=== PATIENT | female | born 1945 | race Caucasian/White ===

== ENCOUNTER 2017-01-17 17:53 | Inpatient (IN) | payer MEDICARE, MEDICAID ==
[~2017-01-17] VITALS: Ht 165.1 cm; Wt 91.2 kg
[2017-01-17 19:17] LABS: BASOPHILS % 0.8 % (0.0-2.0); EOSINOPHILS % 2.3 % (0.0-5.0); LYMPHOCYTES % 17.7 % (20.0-50.0); MEAN CORPUSCULAR HEMOGLOBIN 23.6 pg (28.0-32.0); MEAN CORPUSCULAR VOLUME 78.9 fL (81.0-99.0); MEAN PLATELET VOLUME 7.7 fl (7.4-10.4); MONOCYTES % 11.5 % (2.0-8.0); NEUTROPHILS % 67.7 % (40.0-76.0); PLATELET 220 x1000/uL (130-400); RED BLOOD CELL COUNT 2.54 mill/uL (4.2-5.4); RED CELL DISTRIBUTION WIDTH 20.8 % (11.6-14.6)
[2017-01-17 19:20] LABS: HEMATOCRIT. 20.1 % (36.0-48.0)
[2017-01-17 19:23] LABS: PROTHROMBIN TIME 10.1 sec
[2017-01-17 19:32] LABS: CARBON DIOXIDE 35 mEq/L (21-32); CHLORIDE 102 mEq/L (98-107); TROPONIN I 0.03 ng/mL (0.00-0.04)
[2017-01-17] MEDS ORDERED: DOCUSATE SODIUM 100MG CAPSULE PO PRN (20:45)
[2017-01-17] MEDS ORDERED: LORAZEPAM 2MG/ML CPJ IV PRN (20:45)
[2017-01-17] MEDS ORDERED: NA PHOS,M-B/NA PHOS,DI-BA ENEMA 118ML PR PRN (20:45)
[2017-01-17] MEDS ORDERED: ZOLPIDEM TARTRATE 5MG TABLET PO PRN (20:45)
[2017-01-17] MEDS ORDERED: ONDANSETRON HCL 4MG/2ML VIAL IV PRN (20:45)
[2017-01-17] MEDS ORDERED: DIPHENHYDRAMINE 50MG/ML VIAL IV PRN (20:45)
[2017-01-17] MEDS ORDERED: MAGNESIUM/ALUMINUM HYDROXIDE/SIMETHICONE 30ML UDC PO PRN (20:45)
[2017-01-17] MEDS ORDERED: CLONIDINE 0.1MG TABLET PO PRN (20:45)
[2017-01-17] MEDS ORDERED: MORPHINE SULFATE 2 MG/ML CPJ (NOT FOR IM USE) IV PRN (20:45)
[2017-01-17] MEDS ORDERED: NITROGLYCERIN 0.4MG TABLET SL SL PRN (20:45)
[2017-01-17] MEDS ORDERED: GUAIFENESIN 200MG/10ML SUGAR FREE UDC PO PRN (20:45)
[2017-01-17] MEDS ORDERED: ACETAMINOPHEN 325MG TABLET PO PRN (20:45)
[2017-01-17] MEDS ORDERED: PANTOPRAZOLE SODIUM 40 MG/VIAL IV ONE (21:00)
[2017-01-17 21:27] LABS: VITAMIN B12 SERUM 412 pg/mL (211-911)
[2017-01-17 21:49] LABS: FOLIC ACID (FOLATE) SERUM > 20.00 ng/mL (>5.38)
[2017-01-17 23:55] VITALS: BP 95/38
[2017-01-18] VITALS (13 sets, daily range): BP systolic 89–132; BP diastolic 32–62
[2017-01-18] MEDS ORDERED: PANTOPRAZOLE SODIUM 40 MG/VIAL IV SCH (06:00)
[2017-01-18] MEDS: PANTOPRAZOLE SODIUM 40 MG/VIAL IV SCH ×2 (06:11→18:07)
[2017-01-18] MEDS: TRAMADOL 50MG TABLET PO PRN (06:19)
[2017-01-18] MEDS ORDERED: MORPHINE SULFATE 4 MG/ML CPJ (NOT FOR IM USE) IV PRN (06:30)
[2017-01-18] MEDS: IPRATROPIUM/ALBUTEROL 0.5-3(2.5)MG/3ML NEB INH PRN ×2 (08:44→17:51)
[2017-01-18] MEDS ORDERED: MONT10TA24 PO (09:27)
[2017-01-18] MEDS ORDERED: TRAZ-129 PO (09:27)
[2017-01-18] MEDS ORDERED: ANAS1TAB7 PO (09:27)
[2017-01-18] MEDS ORDERED: PANT40TA4 PO ×2 (09:27)
[2017-01-18] MEDS ORDERED: HYDR-523 PO (09:27)
[2017-01-18] MEDS ORDERED: CLOP75TA33 PO (09:27)
[2017-01-18] MEDS ORDERED: TIOT18CA3 IH (09:27)
[2017-01-18] MEDS ORDERED: POLY250017 PO (09:27)
[2017-01-18] MEDS ORDERED: ASPI-864 PO (09:27)
[2017-01-18] MEDS ORDERED: MELA5TAB3 PO (09:27)
[2017-01-18] MEDS ORDERED: SERT-112 PO (09:27)
[2017-01-18] MEDS ORDERED: NITR0.4T3 SL (09:27)
[2017-01-18] MEDS ORDERED: ISOS60TA4 PO (09:27)
[2017-01-18] MEDS ORDERED: FOLI-43 PO (09:27)
[2017-01-18] MEDS ORDERED: METO-296 PO (09:27)
[2017-01-18] MEDS ORDERED: ROSU40TA PO (09:27)
[2017-01-18] MEDS ORDERED: FERR-63 PO (09:27)
[2017-01-18] MEDS ORDERED: SIMETHICONE 40 MG/0.6 ML 30ML ONE ×2 (11:27→13:49)
[2017-01-18] MEDS ORDERED: SODIUM CHLORIDE 0.9% 10ML VIAL ONE (11:27)
[2017-01-18] MEDS ORDERED: FENTANYL CITRATE/PF 50MCG/ML 2ML VIAL ONE (13:49)
[2017-01-18] MEDS ORDERED: MIDAZOLAM HCL 5 MG/5 ML VIAL ONE (13:49)
[2017-01-18] MEDS ORDERED: MIDAZOLAM HCL 5 MG/5 ML VIAL IV PRN (14:02)
[2017-01-18] MEDS ORDERED: FENTANYL CITRATE/PF 50MCG/ML 2ML VIAL IV PRN (14:02)
[2017-01-18 17:15] LABS: BASOPHILS % 0.5 % (0.0-2.0); EOSINOPHILS % 1.5 % (0.0-5.0); HEMATOCRIT. 26.9 % (36.0-48.0); HEMOGLOBIN. 8.5 g/dL (12.0-16.0); LYMPHOCYTES % 15.2 % (20.0-50.0); MEAN CORPUSCULAR HEMOGLOBIN 25.5 pg (28.0-32.0); MEAN CORPUSCULAR VOLUME 80.3 fL (81.0-99.0); MEAN PLATELET VOLUME 8.1 fl (7.4-10.4); MONOCYTES % 9.7 % (2.0-8.0); NEUTROPHILS % 73.1 % (40.0-76.0); PLATELET 195 x1000/uL (130-400); RED BLOOD CELL COUNT 3.35 mill/uL (4.2-5.4); RED CELL DISTRIBUTION WIDTH 19.5 % (11.6-14.6)
[2017-01-18] MEDS: SENNOSIDES/DOCUSATE SOD 8.6/50MG TABLET PO SCH (18:07)
[2017-01-18] MEDS ORDERED: SORBITOL 70% SOLN 30ML PO NR (21:00)
[2017-01-19] VITALS (9 sets, daily range): BP systolic 109–157; BP diastolic 49–64
[2017-01-19] MEDS: TRAMADOL 50MG TABLET PO PRN (00:50)
[2017-01-19] MEDS ORDERED: SORBITOL 70% SOLN 30ML PO NR (06:00)
[2017-01-19] MEDS: PANTOPRAZOLE SODIUM 40 MG/VIAL IV SCH ×2 (06:07→18:18)
[2017-01-19] MEDS ORDERED: NA PHOS,M-B/NA PHOS,DI-BA ENEMA 118ML PR NR (08:00)
[2017-01-19] MEDS ORDERED: SODIUM CHLORIDE 0.9% 10ML VIAL ONE (08:53)
[2017-01-19] MEDS ORDERED: SIMETHICONE 40 MG/0.6 ML 30ML ONE ×2 (08:53→12:04)
[2017-01-19] MEDS: SENNOSIDES/DOCUSATE SOD 8.6/50MG TABLET PO SCH (09:00)
[2017-01-19] MEDS ORDERED: MIDAZOLAM HCL 5 MG/5 ML VIAL ONE (12:04)
[2017-01-19] MEDS ORDERED: FENTANYL CITRATE/PF 50MCG/ML 2ML VIAL ONE (12:05)
[2017-01-19 12:11] LABS: HEMATOCRIT. 32.2 % (36.0-48.0); HEMOGLOBIN. 9.8 g/dL (12.0-16.0); MEAN CORPUSCULAR VOLUME 81.9 fL (81.0-99.0); MEAN PLATELET VOLUME 8.3 fl (7.4-10.4); PLATELET 244 x1000/uL (130-400); RED BLOOD CELL COUNT 3.94 mill/uL (4.2-5.4); RED CELL DISTRIBUTION WIDTH 19.9 % (11.6-14.6)
[2017-01-19] MEDS ORDERED: MIDAZOLAM HCL 5 MG/5 ML VIAL IV PRN (12:22)
[2017-01-19] MEDS ORDERED: FENTANYL CITRATE/PF 50MCG/ML 2ML VIAL IV PRN (12:22)
[2017-01-19 12:35] LABS: CARBON DIOXIDE 33 mEq/L (21-32); CHLORIDE 108 mEq/L (98-107)
[2017-01-19 13:28] LABS: PLATELET ESTIMATE NORMAL
[2017-01-20] VITALS: BP 96/54
[2017-01-20] MEDS: TRAMADOL 50MG TABLET PO PRN ×3 (01:32→22:10)
[2017-01-20 04:00] VITALS: BP 169/59
[2017-01-20] MEDS: PANTOPRAZOLE SODIUM 40 MG/VIAL IV SCH (05:36)
[2017-01-20 07:50] VITALS: BP 117/33
[2017-01-20] MEDS: SENNOSIDES/DOCUSATE SOD 8.6/50MG TABLET PO SCH (08:29)
[2017-01-20 11:51] VITALS: BP 143/53
[2017-01-20] MEDS: IPRATROPIUM/ALBUTEROL 0.5-3(2.5)MG/3ML NEB INH PRN ×2 (12:29→20:49)
[2017-01-20] MEDS ORDERED: SERTRALINE HCL 100MG TABLET PO SCH ×2 (12:45→21:00)
[2017-01-20] MEDS: FOLIC ACID 1MG TABLET PO SCH (14:16)
[2017-01-20] MEDS: ASPIRIN 81MG EC TABLET PO SCH (14:16)
[2017-01-20] MEDS: ISOSORBIDE MONONITRATE 60MG TABLET SR 24HR PO SCH (14:17)
[2017-01-20] MEDS: FERROUS SULFATE 325MG TABLET PO SCH (14:17)
[2017-01-20 16:00] VITALS: BP 96/25
[2017-01-20 20:00] VITALS: BP 110/46
[2017-01-20] MEDS: PANTOPRAZOLE 40MG DR TABLET PO SCH (20:30)
[2017-01-20] MEDS ORDERED: ATORVASTATIN CALCIUM 40MG TABLET PO SCH (21:00)
[2017-01-20] MEDS ORDERED: MONTELUKAST SODIUM 10MG TABLET PO SCH (21:00)
[2017-01-20] MEDS ORDERED: MEDICATION NOT ON FORMULARY EA (Rosuvastatin Calcium (Crestor) 1 TAB) PO SCH (21:00)
[2017-01-21] VITALS: BP 100/46
[2017-01-21 04:00] VITALS: BP 118/47
[2017-01-21] MEDS: PANTOPRAZOLE 40MG DR TABLET PO SCH (06:21)
[2017-01-21 07:59] VITALS: BP 104/43
[2017-01-21] MEDS: ASPIRIN 81MG EC TABLET PO SCH (08:44)
[2017-01-21] MEDS: ISOSORBIDE MONONITRATE 60MG TABLET SR 24HR PO SCH (08:44)
[2017-01-21] MEDS: FERROUS SULFATE 325MG TABLET PO SCH (08:44)
[2017-01-21] MEDS: SENNOSIDES/DOCUSATE SOD 8.6/50MG TABLET PO SCH (08:44)
[2017-01-21] MEDS: FOLIC ACID 1MG TABLET PO SCH (08:44)
[2017-01-21 12:00] VITALS: BP 81/47
[2017-01-21] MEDS: IPRATROPIUM/ALBUTEROL 0.5-3(2.5)MG/3ML NEB INH PRN (14:16)
== END 2017-01-21 15:00 | disposition home health service (06) | DRG 377 ==
LOC: ER 18:34 → 6WST 20:52 → ENRESERV 21:10 → SUPCPDRO 21:25
PROVIDERS: ADMIT Internal Medicine; ATTEND Internal Medicine
PROC: 30233N1 Transfusion of Nonautologous Red Blood Cells into Peripheral Vein, Percutaneous Approach (ICD-10-PCS; principal; 2017-01-17)
PROC: 0DB68ZX Excision of Stomach, Via Natural or Artificial Opening Endoscopic, Diagnostic (ICD-10-PCS; 2017-01-18)
PROC: 0DBH8ZZ Excision of Cecum, Via Natural or Artificial Opening Endoscopic (ICD-10-PCS; 2017-01-19)
PROC: 0DBL8ZZ Excision of Transverse Colon, Via Natural or Artificial Opening Endoscopic (ICD-10-PCS; 2017-01-19)
PROC: 0DBN8ZZ Excision of Sigmoid Colon, Via Natural or Artificial Opening Endoscopic (ICD-10-PCS; 2017-01-19)
DX: K92.2 Gastrointestinal hemorrhage, unspecified (principal); E43 Unspecified severe protein-calorie malnutrition; E87.0 Hyperosmolality and hypernatremia; I95.9 Hypotension, unspecified; J44.9 Chronic obstructive pulmonary disease, unspecified; D62 Acute posthemorrhagic anemia; D50.9 Iron deficiency anemia, unspecified; W19.XXXA Unspecified fall, initial encounter; K29.70 Gastritis, unspecified, without bleeding; E78.5 Hyperlipidemia, unspecified; I10 Essential (primary) hypertension; I25.10 Atherosclerotic heart disease of native coronary artery without angina pectoris; K44.9 Diaphragmatic hernia without obstruction or gangrene; K57.90 Diverticulosis of intestine, part unspecified, without perforation or abscess without bleeding; K59.00 Constipation, unspecified; K63.5 Polyp of colon; K64.8 Other hemorrhoids; M85.80 Other specified disorders of bone density and structure, unspecified site; E66.9 Obesity, unspecified; M25.512 Pain in left shoulder; M54.5 Low back pain; R26.2 Difficulty in walking, not elsewhere classified; Z88.5 Allergy status to narcotic agent; Z95.5 Presence of coronary angioplasty implant and graft; I25.2 Old myocardial infarction; Z79.82 Long term (current) use of aspirin; Z79.899 Other long term (current) drug therapy; Z68.33 Body mass index [BMI] 33.0-33.9, adult; Z90.49 Acquired absence of other specified parts of digestive tract; Z90.721 Acquired absence of ovaries, unilateral
CPT/HCPCS: 36415; 36430; 71010; 73030; 73522; 80053; 80061; 82270; 82607; 82746; 83036; 83540; 83550; 84443; 84484; 85025; 85610; 86850; 86900; 86920; 88305; 88312; 88313; 93005; 93306; 93970; 94640; 94664; 97162; 97530; 99291; A4216; C9113; J2250; J2405; J3010; J7050; J7620; P9016; P9021